=== PATIENT | female | born 1965 | race Caucasian/White ===

== ENCOUNTER → 2019-04-12 | Outpatient (CLI) | payer OTHER ==
--- NOTE | 2019-04-12 09:46 | Diagnostic Imaging Report ---
PATIENT HISTORY: DYSPNEA. TECHNIQUE: 2 views of the chest COMPARISON: None FINDINGS: There are minimal linear opacities in the right lung base. The heart is normal in size. There is no pleural effusion or pneumothorax. No acute osseous abnormality is seen. IMPRESSION: Mild linear opacities in the right lung base, may represent atelectasis or infiltrate. Dictated by: Dictated on workstation # [id number]
== END ==
LOC: RAD FS 09:31
PROVIDERS: ATTEND Otolaryngology Otolaryngology/Facial Plastic Surgery
DX: R91.8 Other nonspecific abnormal finding of lung field (principal); R06.00 Dyspnea, unspecified
CPT/HCPCS: 71046

== ENCOUNTER → 2019-06-06 | Outpatient (CLI) | payer OTHER ==
[~2019-06-06] MED LIST: CATHETER FLUSH 10 ML SYR IV PRN; HOLD METFORMIN - RECEIVED CONTRAST 20 ML VIAL IV SCH; IOHEXOL 350 MG/ML 100 ML (OMNIPAQUE 350) VIAL IV ONE; NS 100 ML (IVPB) BAG IV ONE; RT-ALBUTEROL SULF 2.5 MG/3 ML PRE-MIX VIAL INH ONE
[2019-06-06 13:46] LABS: BUN/CREATININE RATIO 15; GFR ESTIMATED > 60
--- NOTE | 2019-06-06 15:31 | Diagnostic Imaging Report ---
PROCEDURE: CT chest with contrast only. TECHNIQUE: Multiple contiguous axial images were obtained through the chest after administration of intravenous contrast. Auto Exposure Controls were utilized during the CT exam to meet ALARA standards for radiation dose reduction. INDICATION: Cough and hoarseness. COMPARISON: No prior studies are available for comparison. FINDINGS: No axillary lymphadenopathy is identified. Bilateral breast implants are noted. No mediastinal or hilar lymphadenopathy is detected. No pericardial or pleural fluid is identified. The central airways appear to be patent. Parenchymal evaluation demonstrates tiny nodule in left lung apex. Vague nodular density in the superior segment of right lower lobe is noted measuring 6 mm. Tiny nodule more inferiorly in the posterior right lower lobe is noted measuring 2 mm. Tiny subpleural nodule posterolateral left lower lobe is seen measuring approximately 2 mm. The upper abdomen is unremarkable. Bony structures are not acute. IMPRESSION: 1. No evidence of thoracic lymphadenopathy. Pulmonary micronodules are noted bilaterally, as described. Followup based on risk factors could be performed. No acute features seen. Dictated by: Dictated on workstation # [id number]
== END ==
LOC: RAD 13:12
PROVIDERS: ATTEND Nurse Practitioner Family
DX: J45.909 Unspecified asthma, uncomplicated (principal); G47.10 Hypersomnia, unspecified; R29.818 Other symptoms and signs involving the nervous system; R91.8 Other nonspecific abnormal finding of lung field
CPT/HCPCS: 36415; 71260; 82565; 84520; 94060; 94726; 94729

== ENCOUNTER → 2019-06-16 | Outpatient (CLI) | payer OTHER ==
[~2019-06-16] MED LIST changes: +BACLOFEN RC; -CATHETER FLUSH 10 ML SYR IV PRN; +CETI10TA17 PO; +CRAN650C PO; +CYAN250010 PO; +ESTR0.5T PV; +FLUT1AER IH; -HOLD METFORMIN - RECEIVED CONTRAST 20 ML VIAL IV SCH; -IOHEXOL 350 MG/ML 100 ML (OMNIPAQUE 350) VIAL IV ONE; +LISI1TAB6 PO; +MAGN400C PO; +METF-397 PO; +METH1TAB PO; +METHYL PROTECT PO; +METO-370 PO; +MONT10TA24 PO; +MTH/1CAP PO; -NS 100 ML (IVPB) BAG IV ONE; +ONDA4TAB10 PO; +PHEN8TAB3 PO; +POLY17PO6 PO; +POTA10CA43 PO; +PRELIEF PO; +RANI-613 PO; +RT-ALBUINH IH; -RT-ALBUTEROL SULF 2.5 MG/3 ML PRE-MIX VIAL INH ONE; +TIZA2TAB4 PO; +TOPI50TA13 PO; +UBID100C17 PO; +VITA-246 PO; +[UNRECOGNIZED DRUG - CODE] MC; +[UNRECOGNIZED DRUG - OTHER] PO; +[UNRECOGNIZED DRUG - OTHER] PO; +[UNRECOGNIZED DRUG - OTHER] RC
[2019-06-16 11:13] LABS: BASOPHILS % (AUTO) 0 % (0-10); EOSINOPHILS # (AUTO) 0.1 10^3/uL (0.0-0.3); EOSINOPHILS % (AUTO) 1 % (0-10); HEMATOCRIT 41 % (35-52); HEMOGLOBIN 13.7 G/DL (11.5-16.0); LYMPHOCYTES # (AUTO) 2.2 X 10^3 (1.0-4.0); LYMPHOCYTES % (AUTO) 27 % (12-44); MEAN CORPUSCULAR HEMOGLOBIN 28 PG (25-34); MEAN CORPUSCULAR HGB CONC 34 G/DL (32-36); MEAN CORPUSCULAR VOLUME 84 FL (80-99); MEAN PLATELET VOLUME 9.8 FL (7.4-10.4); MONOCYTES # (AUTO) 0.8 X 10^3 (0.0-1.0); MONOCYTES % (AUTO) 9 % (0-12); NEUTROPHILS # (AUTO) 5.2 X 10^3 (1.8-7.8); NEUTROPHILS % (AUTO) 62 % (42-75); PLATELET COUNT 255 10^3/uL (130-400); RED CELL DISTRIBUTION WIDTH 13.8 % (10.0-14.5); WHITE BLOOD COUNT 8.3 10^3/uL (4.3-11.0)
[2019-06-17 03:33] LABS: ALTERNARIA MOLD RAST <0.35 kU/L (<0.35); RAGWEED RAST <0.35 kU/L (<0.35)
== END ==
LOC: LAB 11:01
PROVIDERS: ATTEND Nurse Practitioner Family
DX: J45.909 Unspecified asthma, uncomplicated (principal)
CPT/HCPCS: 36415; 82785; 85025; 86003

== ENCOUNTER 2019-06-18 05:40 | Outpatient (CLI) | payer OTHER ==
[~2019-06-18] VITALS: Ht 162.6 cm; Wt 81.2 kg
[2019-06-18] MEDS ORDERED: ESTR0.5T PV (09:45)
[2019-06-18] MEDS ORDERED: POTA10CA43 PO (09:45)
[2019-06-18] MEDS ORDERED: TOPI50TA13 PO (09:45)
[2019-06-18] MEDS ORDERED: METH1TAB PO (09:45)
[2019-06-18] MEDS ORDERED: METF-397 PO (09:45)
[2019-06-18] MEDS ORDERED: VITA-246 PO (09:45)
[2019-06-18] MEDS ORDERED: PRELIEF PO (09:45)
[2019-06-18] MEDS ORDERED: PHEN8TAB3 PO (09:45)
[2019-06-18] MEDS ORDERED: UBID100C17 PO (09:45)
[2019-06-18] MEDS ORDERED: [UNRECOGNIZED DRUG - OTHER] PO (09:45)
[2019-06-18] MEDS ORDERED: RT-ALBUINH IH (09:45)
[2019-06-18] MEDS ORDERED: CETI10TA17 PO (09:45)
[2019-06-18] MEDS ORDERED: TIZA2TAB4 PO (09:45)
[2019-06-18] MEDS ORDERED: CRAN650C PO (09:45)
[2019-06-18] MEDS ORDERED: [UNRECOGNIZED DRUG - CODE] MC (09:45)
[2019-06-18] MEDS ORDERED: [UNRECOGNIZED DRUG - OTHER] RC (09:45)
[2019-06-18] MEDS ORDERED: [UNRECOGNIZED DRUG - OTHER] PO (09:45)
[2019-06-18] MEDS ORDERED: MONT10TA24 PO (09:45)
[2019-06-18] MEDS ORDERED: METHYL PROTECT PO (09:45)
[2019-06-18] MEDS ORDERED: FLUT1AER IH (09:45)
[2019-06-18] MEDS ORDERED: METO-370 PO (09:45)
[2019-06-18] MEDS ORDERED: RANI-613 PO (09:45)
[2019-06-18] MEDS ORDERED: POLY17PO6 PO (09:45)
[2019-06-18] MEDS ORDERED: LISI1TAB6 PO (09:45)
[2019-06-18] MEDS ORDERED: CYAN250010 PO (09:45)
[2019-06-18] MEDS ORDERED: BACLOFEN RC (09:45)
[2019-06-18] MEDS ORDERED: MTH/1CAP PO (09:45)
[2019-06-18] MEDS ORDERED: MAGN400C PO (09:45)
[2019-06-18] MEDS ORDERED: ONDA4TAB10 PO (09:45)
== END 2019-06-18 09:47 ==
LOC: PREOP 05:40
PROVIDERS: ATTEND Internal Medicine Critical Care Medicine
DX: Z01.818 Encounter for other preprocedural examination (principal); J45.909 Unspecified asthma, uncomplicated